=== PATIENT | male | born 1945 | race Caucasian/White ===

== ENCOUNTER 2022-01-26 10:15 | Inpatient (IN) | payer OTHER, MEDICARE ==
[~2022-01-26] VITALS: Ht 180.3 cm; Wt 84.1 kg
[~2022-01-26 10:15] MED LIST: AMANTADINE100 MG PO; ARTIFICIAL TEAR15 ML OU; AUGMENTIN 875-1 EACH PO; AVELOX400 MG PO; BACLOFEN 10MG T10 MG PO; CEFDINIR300 MG PO; CELEXA10 MG PO; CLARITIN10 MG PO; COUMADIN 2MG TAB2 MG PO; COUMADIN2.5 MG PO; COUMADIN4 MG PO; DULERA 100 MCG8.8 GM INH; DUONEB 2.5-0.5M1 AMP NEB; FLORASTOR250 MG PO; LEVAQUIN750 MG PO; LIPITOR40 MG PO; MELATONIN3 MG PO; MILK OF MA400 MG/5 M PO; MUCINEX 600MG600 MG PO; NORVASC5 MG PO; PREDNISONE 10MG10 MG PO; PREDNISONE 20MG20 MG PO; PREDNISONE20 MG PO; PRILOSEC20 MG PO; PROAIR HFA8.5 GM INH; RITALIN5 MG PO; ROBITUSSIN100 MG/5 M PO; SINGULAIR10 MG PO; SYMBICORT 80-10.2 GM INH; TESSALON PERLE100 M1 PO; TYLENOL650 MG PR; VITAMIN D1000 UNI1 PO; ZOFRAN4 MG PO
[2022-01-26 13:40] LABS: BASOPHIL 0.2 % (0-2); EOSINOPHIL 0.7 % (0-7); HCT 42.5 % (42.0-52.0); HGB 13.6 g/dl (13.2-18.0); LYMPHOCYTE 7.9 % (15-48); MCH 26.1 pg (25.0-31.0); MCV 81.6 fL (78.0-100.0); MONOCYTE 7.6 % (0-12); MPV 9.9 fL (6.0-9.5); NEUTROPHIL 83.1 % (41-80); NRBC 0; PLT 297 K/uL (150-400); RBC 5.21 M/uL (4.70-6.00); RDW 16.7 % (11.5-14.0); WBC 12.2 K/uL (4.0-10.5)
[2022-01-26 14:01] LABS: LACTIC ACID 1.1 mmol/L (0.4-1.9)
[2022-01-26 14:11] LABS: PROTHROMBIN TIME 60.4 SECONDS (11.8-13.4)
[2022-01-26 14:14] LABS: INR 7.21 (0.9-1.2)
[2022-01-26 14:53] LABS: BILIRUBIN 2+ mg/dL (NEGATIVE); BLOOD TRACE-INTACT Ery/uL (NEGATIVE); CLARITY CLEAR (CLEAR); GLUCOSE (U) NORMAL (NORMAL); LEUKOCYTES NEGATIVE Leu/uL (NEGATIVE); NITRITE NEGATIVE (NEGATIVE); PROTEIN 2+ mg/dL (NEGATIVE); SPECIFIC GRAVITY >=1.030 (1.001-1.030); UROBILINOGEN >=8.0 mg/dL (0.2-1.0)
[2022-01-26 15:04] LABS: COLOR AMBER (YELLOW)
[2022-01-26 15:15] LABS: AMORPHOUS URATES CRYSTALS TRACE; BACTERIA TRACE; MUCOUS TRACE
[2022-01-26 15:16] LABS: GRANULAR CASTS MODERATE
[2022-01-26 15:17] LABS: ALBUMIN 2.1 g/dL (3.4-5.0); BILIRUBIN - TOTAL 1.7 mg/dL (0.2-1.0); BUN/CREAT RATIO (CALC) 14.9 RATIO; CREATININE 0.94 mg/dL (0.67-1.17); GLOBULIN (CALCULATION) 5.8 g/dL; POTASSIUM 3.7 mmol/L (3.5-5.1); TOTAL PROTEIN 7.9 g/dL (6.4-8.2)
[2022-01-26] MEDS ORDERED: VITAMIN D310 MC1 PO (21:41)
[2022-01-26] MEDS ORDERED: WARFARIN SODIUM4 MG PO (21:43)
[2022-01-26 22:15] LABS: INR 7.6 (0.9-1.2)
[2022-01-27 06:36] LABS: BASOPHIL 0.4 % (0-2); EOSINOPHIL 3.2 % (0-7); HCT 43.3 % (42.0-52.0); HGB 13.2 g/dl (13.2-18.0); LYMPHOCYTE 6.7 % (15-48); MCH 25.9 pg (25.0-31.0); MCHC 30.5 g/dL (32.0-36.0); MCV 84.9 fL (78.0-100.0); MONOCYTE 7.7 % (0-12); MPV 10.7 fL (6.0-9.5); NEUTROPHIL 81.6 % (41-80); PLT 267 K/uL (150-400); RDW 16.7 % (11.5-14.0)
[2022-01-27 06:59] LABS: INR 8.21 (0.9-1.2)
[2022-01-27 07:20] LABS: BUN/CREAT RATIO (CALC) 22.7 RATIO; CREATININE 0.75 mg/dL (0.67-1.17); GLOBULIN (CALCULATION) 5.8 g/dL; POTASSIUM 3.5 mmol/L (3.5-5.1); TOTAL PROTEIN 7.8 g/dL (6.4-8.2)
[2022-01-27 08:16] LABS: BASOPHIL(M) 2 % (0-2); LYMPHOCYTE(M) 4 % (15-48); MONOCYTE(M) 4 % (0-12); NEUTROPHILS(M) 90 % (41-80); NRBC 0; TOTAL CELL COUNT 100
[2022-01-27 08:17] LABS: PLATELET ESTIMATE NORMAL; PLATELET MORPHOLOGY NORMAL
[2022-01-27] MEDS ORDERED: SPIRIVA18 MCG INH (09:07)
[2022-01-27] MEDS ORDERED: WIXELA 250-501 EACH INH (09:07)
[2022-01-27] MEDS ORDERED: VENTOLIN (2.5 MG/3 M NEB (09:08)
--- NOTE | 2022-01-27 12:16 | NUR ---
ST MODIFIED BARIUM, STATED PATIENT DID GREAT EXCEPT SILENT ASPIRATION WHEN USED A STRAW. ORDER FOR REGULAR DIET THIN LIQUIDS, NO STRAWS AND MEDS IN PUREE. DR KIMBROUGH GAVE ORDER OVER TELEPHONE
[2022-01-28 06:56] LABS: BASOPHIL 0.2 % (0-2); EOSINOPHIL 4.8 % (0-7); HCT 35.9 % (42.0-52.0); HGB 11.3 g/dl (13.2-18.0); LYMPHOCYTE 9.7 % (15-48); MCH 25.7 pg (25.0-31.0); MCHC 31.5 g/dL (32.0-36.0); MCV 81.8 fL (78.0-100.0); MONOCYTE 8.5 % (0-12); MPV 10.3 fL (6.0-9.5); NEUTROPHIL 76.2 % (41-80); NRBC 0; PLT 268 K/uL (150-400); RBC 4.39 M/uL (4.70-6.00); RDW 16.4 % (11.5-14.0); WBC 9.9 K/uL (4.0-10.5)
[2022-01-28 07:45] LABS: ALBUMIN 1.8 g/dL (3.4-5.0); BILIRUBIN - TOTAL 0.7 mg/dL (0.2-1.0); BUN/CREAT RATIO (CALC) 13.2 RATIO; CREATININE 0.76 mg/dL (0.67-1.17); MAGNESIUM 1.8 mg/dL (1.8-2.4); POTASSIUM 3.2 mmol/L (3.5-5.1); TOTAL PROTEIN 6.8 g/dL (6.4-8.2)
[2022-01-28 10:05] LABS: INR 2.44 (0.9-1.2); PROTHROMBIN TIME 25.6 SECONDS (11.8-13.4); PTT 56.8 SECONDS (24.4-34.7)
[2022-01-29 06:37] LABS: BASOPHIL 0.2 % (0-2); EOSINOPHIL 6.1 % (0-7); HCT 36.1 % (42.0-52.0); HGB 11.7 g/dl (13.2-18.0); LYMPHOCYTE 10.4 % (15-48); MCH 26.3 pg (25.0-31.0); MCHC 32.4 g/dL (32.0-36.0); MCV 81.1 fL (78.0-100.0); MONOCYTE 10.5 % (0-12); MPV 10.4 fL (6.0-9.5); NEUTROPHIL 72.4 % (41-80); NRBC 0; PLT 255 K/uL (150-400); RBC 4.45 M/uL (4.70-6.00); RDW 16.4 % (11.5-14.0)
[2022-01-29 06:47] LABS: INR 1.63 (0.9-1.2); PROTHROMBIN TIME 18.6 SECONDS (11.8-13.4)
[2022-01-29 07:01] LABS: ALBUMIN 1.8 g/dL (3.4-5.0); BILIRUBIN - TOTAL 0.6 mg/dL (0.2-1.0); BUN/CREAT RATIO (CALC) 6.5 RATIO; CREATININE 0.77 mg/dL (0.67-1.17); POTASSIUM 3.7 mmol/L (3.5-5.1); TOTAL PROTEIN 6.8 g/dL (6.4-8.2)
[2022-01-30 06:48] LABS: BASOPHIL 0.2 % (0-2); EOSINOPHIL 8.5 % (0-7); HCT 36.5 % (42.0-52.0); HGB 11.6 g/dl (13.2-18.0); LYMPHOCYTE 15.7 % (15-48); MCH 26.1 pg (25.0-31.0); MCHC 31.8 g/dL (32.0-36.0); MONOCYTE 11.3 % (0-12); MPV 10.7 fL (6.0-9.5); NEUTROPHIL 63.7 % (41-80); NRBC 0; PLT 269 K/uL (150-400); RBC 4.45 M/uL (4.70-6.00); RDW 16.5 % (11.5-14.0); WBC 8.6 K/uL (4.0-10.5)
[2022-01-30 06:58] LABS: ALBUMIN 1.9 g/dL (3.4-5.0); BILIRUBIN - TOTAL 0.6 mg/dL (0.2-1.0); BUN/CREAT RATIO (CALC) 6.4 RATIO; CREATININE 0.78 mg/dL (0.67-1.17); GLOBULIN (CALCULATION) 4.2 g/dL; POTASSIUM 3.6 mmol/L (3.5-5.1); TOTAL PROTEIN 6.1 g/dL (6.4-8.2)
[2022-01-30] MEDS ORDERED: AMOX TR-K CLV1 EAC4 PO ×2 (13:06→13:07)
[2022-01-30] MEDS ORDERED: MUCINEX 600MG600 MG PO ×2 (13:06→13:07)
[2022-01-30] MEDS ORDERED: WARFARIN SODIUM3 MG PO (13:09)
[2022-01-30 13:48] LABS: INR 1.48 (0.9-1.2); PROTHROMBIN TIME 17.2 SECONDS (11.8-13.4)
--- NOTE | 2022-01-30 15:33 | NUR ---
01/30/22 A referral was made to [facility] per pt / family request.
== END 2022-01-30 15:32 | disposition home or self-care (01) | DRG 444 ==
LOC: FER 10:15 → FMS 17:56
PROVIDERS: Emergency Medicine; Internal Medicine; ADMIT Internal Medicine
DX: K81.0 Acute cholecystitis (principal); J18.9 Pneumonia, unspecified organism; G93.41 Metabolic encephalopathy; E44.1 Mild protein-calorie malnutrition; E87.1 Hypo-osmolality and hyponatremia; J96.11 Chronic respiratory failure with hypoxia; I69.351 Hemiplegia and hemiparesis following cerebral infarction affecting right dominant side; Z20.822 Contact with and (suspected) exposure to COVID-19; J44.9 Chronic obstructive pulmonary disease, unspecified; L89.322 Pressure ulcer of left buttock, stage 2; L89.312 Pressure ulcer of right buttock, stage 2; F03.90 Unspecified dementia, unspecified severity, without behavioral disturbance, psychotic disturbance, mood disturbance, and anxiety; E87.6 Hypokalemia; I10 Essential (primary) hypertension; E78.5 Hyperlipidemia, unspecified; F32.A Depression, unspecified; R79.1 Abnormal coagulation profile; Z99.81 Dependence on supplemental oxygen; Z79.899 Other long term (current) drug therapy; I69.391 Dysphagia following cerebral infarction; R13.10 Dysphagia, unspecified; Z79.01 Long term (current) use of anticoagulants; Z68.25 Body mass index [BMI] 25.0-25.9, adult
CPT/HCPCS: 36415; 70450; 71045; 74230; 80053; 81001; 82553; 83605; 83690; 83735; 84145; 84484; 85025; 85610; 85730; 87040; 92611; 94640; 94762; 97162; 97166; 97530; 97530-GP; C9113; J1650; J2543; J3430; J7030; Q9967; U0002

== ENCOUNTER 2022-02-25 16:29 | Emergency (ER) | payer OTHER, MEDICARE ==
[~2022-02-25 16:29] MED LIST changes: +AMOX TR-K CLV1 EAC4 PO; +SPIRIVA18 MCG INH; +VENTOLIN (2.5 MG/3 M NEB; +VITAMIN D310 MC1 PO; +WARFARIN SODIUM3 MG PO; +WARFARIN SODIUM4 MG PO; +WIXELA 250-501 EACH INH
[2022-02-25 17:15] LABS: BASOPHIL 0.3 % (0-2); EOSINOPHIL 4.2 % (0-7); HCT 43.7 % (42.0-52.0); HGB 13.8 g/dl (13.2-18.0); LYMPHOCYTE 9.5 % (15-48); MCH 25.7 pg (25.0-31.0); MCHC 31.6 g/dL (32.0-36.0); MCV 81.5 fL (78.0-100.0); MONOCYTE 7.4 % (0-12); MPV 10.6 fL (6.0-9.5); NEUTROPHIL 78.3 % (41-80); NRBC 0; PLT 332 K/uL (150-400); RBC 5.36 M/uL (4.70-6.00); WBC 10.3 K/uL (4.0-10.5)
[2022-02-25 17:20] LABS: INR 4.16 (0.9-1.2); PROTHROMBIN TIME 38.6 SECONDS (11.9-13.9); PTT 49.8 SECONDS (24.9-34.6)
[2022-02-25 17:30] LABS: ALBUMIN 2.7 g/dL (3.4-5.0); BILIRUBIN - TOTAL 1.5 mg/dL (0.2-1.0); BUN/CREAT RATIO (CALC) 12.5 RATIO; CREATININE 0.8 mg/dL (0.67-1.17); GLOBULIN (CALCULATION) 6.6 g/dL; POTASSIUM 3.4 mmol/L (3.5-5.1); TOTAL PROTEIN 9.3 g/dL (6.4-8.2)
[2022-02-25 17:39] LABS: LACTIC ACID 0.9 mmol/L (0.4-1.9)
[2022-02-25 20:51] LABS: BILIRUBIN NEGATIVE (NEGATIVE); BLOOD TRACE-INTACT Ery/uL (NEGATIVE); CLARITY CLEAR (CLEAR); COLOR YELLOW (YELLOW); GLUCOSE (U) NORMAL (NORMAL); LEUKOCYTES NEGATIVE Leu/uL (NEGATIVE); NITRITE NEGATIVE (NEGATIVE); PROTEIN NEGATIVE (NEGATIVE)
[2022-02-25 21:01] LABS: BACTERIA TRACE; URINARY WBC RARE
[2022-02-25 21:02] LABS: SQUAMOUS EPITHELIAL CELLS RARE
== END 2022-02-26 00:10 | disposition other institution (70) ==
LOC: FER 16:29
PROVIDERS: Emergency Medicine
DX: K81.1 Chronic cholecystitis (principal); R11.2 Nausea with vomiting, unspecified; R79.89 Other specified abnormal findings of blood chemistry; I10 Essential (primary) hypertension; J44.9 Chronic obstructive pulmonary disease, unspecified; I69.398 Other sequelae of cerebral infarction; Z79.01 Long term (current) use of anticoagulants; Z79.899 Other long term (current) drug therapy; Z20.822 Contact with and (suspected) exposure to COVID-19
CPT/HCPCS: 36415; 36430; 80053; 81001; 83605; 84145; 85025; 85610; 85730; 86900; 86901; 87040; J0780; J2405; J2543; J3430; J7050; P9017; U0002

== ENCOUNTER 2022-04-16 15:09 | Inpatient (IN) | payer MEDICARE ==
[~2022-04-16] VITALS: Ht 167.6 cm; Wt 68.7 kg
[2022-04-16 15:47] LABS: BASOPHIL 0.3 % (0-2); EOSINOPHIL 4.2 % (0-7); HCT 36.3 % (42.0-52.0); HGB 11.7 g/dl (13.2-18.0); LYMPHOCYTE 6.2 % (15-48); MCH 26.1 pg (25.0-31.0); MCHC 32.2 g/dL (32.0-36.0); MONOCYTE 11.5 % (0-12); MPV 9.7 fL (6.0-9.5); NEUTROPHIL 77.4 % (41-80); NRBC 0; PLT 283 K/uL (150-400); RBC 4.48 M/uL (4.70-6.00); RDW 16.2 % (11.5-14.0); WBC 7.6 K/uL (4.0-10.5)
[2022-04-16 16:08] LABS: BILIRUBIN NEGATIVE (NEGATIVE); BLOOD NEGATIVE Ery/uL (NEGATIVE); CLARITY CLEAR (CLEAR); COLOR YELLOW (YELLOW); GLUCOSE (U) NORMAL (NORMAL); LEUKOCYTES NEGATIVE Leu/uL (NEGATIVE); NITRITE NEGATIVE (NEGATIVE); PROTEIN NEGATIVE (NEGATIVE); SPECIFIC GRAVITY 1.015 (1.001-1.030); UROBILINOGEN 0.2 mg/dL (0.2-1.0)
[2022-04-16 16:13] LABS: ALBUMIN 2.6 g/dL (3.4-5.0); BILIRUBIN - TOTAL 0.2 mg/dL (0.2-1.0); BUN/CREAT RATIO (CALC) 9.6 RATIO; CREATININE 0.73 mg/dL (0.67-1.17); GLOBULIN (CALCULATION) 4.9 g/dL; POTASSIUM 4.3 mmol/L (3.5-5.1); TOTAL PROTEIN 7.5 g/dL (6.4-8.2)
[2022-04-16 16:15] LABS: LACTIC ACID 1.1 mmol/L (0.4-1.9)
[2022-04-16 16:45] LABS: INFLUENZA A NAA NEGATIVE (NEGATIVE)
[2022-04-16 16:54] LABS: CORONAVIRUS 2019 SARS-COV-2 POSITIVE (NEGATIVE)
[2022-04-16] MEDS ORDERED: JANTOVEN3 MG PO (20:38)
[2022-04-16] MEDS ORDERED: JANTOVEN6 MG PO (20:40)
[2022-04-16 21:26] LABS: INR 1.48 (0.9-1.2); PROTHROMBIN TIME 17.4 SECONDS (11.9-13.9)
[2022-04-17 07:28] LABS: BASOPHIL 0.3 % (0-2); EOSINOPHIL 0.3 % (0-7); HCT 38.7 % (42.0-52.0); HGB 12.3 g/dl (13.2-18.0); LYMPHOCYTE 12.1 % (15-48); MCH 25.9 pg (25.0-31.0); MCHC 31.8 g/dL (32.0-36.0); MCV 81.6 fL (78.0-100.0); MONOCYTE 14.1 % (0-12); MPV 9.7 fL (6.0-9.5); NEUTROPHIL 72.9 % (41-80); NRBC 0; PLT 283 K/uL (150-400); RBC 4.74 M/uL (4.70-6.00); RDW 16.2 % (11.5-14.0); WBC 5.9 K/uL (4.0-10.5)
[2022-04-17 07:49] LABS: IRON % SATURATION 10.4 %SAT (20-50)
[2022-04-17 08:03] LABS: BUN/CREAT RATIO (CALC) 9.6 RATIO; CREATININE 0.83 mg/dL (0.67-1.17)
--- NOTE | 2022-04-17 16:45 | NUR ---
04/17/22 Mr. Hand lives at home with his spouse. He is followed by [facility]. [facility] has been notified of admission. Luanne Shepard is the PCP. He also receives care at [facility]. Mr. Hand has a rw, 02 at 2.5 L, portable tank, and hospital bed. Ms. Hand plans on Mr. Hand returning home at discharge.
[2022-04-18 07:35] LABS: BASOPHIL 0 % (0-2); EOSINOPHIL 0 % (0-7); HCT 40.5 % (42.0-52.0); HGB 12.9 g/dl (13.2-18.0); LYMPHOCYTE 19.1 % (15-48); MCH 25.6 pg (25.0-31.0); MCHC 31.9 g/dL (32.0-36.0); MCV 80.5 fL (78.0-100.0); MONOCYTE 10.8 % (0-12); MPV 10.3 fL (6.0-9.5); NEUTROPHIL 69.6 % (41-80); NRBC 0; PLT 316 K/uL (150-400); RBC 5.03 M/uL (4.70-6.00); RDW 16.3 % (11.5-14.0); WBC 4.2 K/uL (4.0-10.5)
[2022-04-18 07:46] LABS: INR 1.24 (0.9-1.2); PROTHROMBIN TIME 15.2 SECONDS (11.9-13.9)
[2022-04-18 07:56] LABS: BUN/CREAT RATIO (CALC) 21.7 RATIO; CREATININE 0.69 mg/dL (0.67-1.17); POTASSIUM 4.4 mmol/L (3.5-5.1)
[2022-04-19 07:32] LABS: BASOPHIL 0.1 % (0-2); EOSINOPHIL 0 % (0-7); HCT 40.7 % (42.0-52.0); HGB 13.1 g/dl (13.2-18.0); LYMPHOCYTE 16.7 % (15-48); MCH 25.7 pg (25.0-31.0); MCHC 32.2 g/dL (32.0-36.0); MONOCYTE 10.1 % (0-12); NEUTROPHIL 72.5 % (41-80); NRBC 0; PLT 340 K/uL (150-400); RBC 5.09 M/uL (4.70-6.00); RDW 15.9 % (11.5-14.0); WBC 7.1 K/uL (4.0-10.5)
[2022-04-19 07:46] LABS: INR 1.5 (0.9-1.2); PROTHROMBIN TIME 17.6 SECONDS (11.9-13.9)
[2022-04-19 07:52] LABS: BUN/CREAT RATIO (CALC) 30.1 RATIO; CREATININE 0.73 mg/dL (0.67-1.17); POTASSIUM 4.4 mmol/L (3.5-5.1)
[2022-04-20 07:14] LABS: BASOPHIL 0 % (0-2); EOSINOPHIL 0 % (0-7); HCT 39.9 % (42.0-52.0); HGB 12.7 g/dl (13.2-18.0); MCH 25.6 pg (25.0-31.0); MCHC 31.8 g/dL (32.0-36.0); MCV 80.4 fL (78.0-100.0); MONOCYTE 10.4 % (0-12); MPV 10.1 fL (6.0-9.5); NRBC 0; PLT 356 K/uL (150-400); RBC 4.96 M/uL (4.70-6.00); RDW 16.2 % (11.5-14.0)
[2022-04-20 07:37] LABS: BUN/CREAT RATIO (CALC) 24.7 RATIO; CREATININE 0.73 mg/dL (0.67-1.17); POTASSIUM 3.9 mmol/L (3.5-5.1)
[2022-04-20 08:25] LABS: INR 1.75 (0.9-1.2); PROTHROMBIN TIME 19.8 SECONDS (11.9-13.9)
--- NOTE | 2022-04-20 16:52 | NUR ---
04/20/22 Ms. Hand is also hopitalized. Jessica Coelho, daughter, states that she plans to take her father home. Ms. Coelho plans to stay with her father around the clock until her mother returns home.
[2022-04-21 07:14] LABS: HCT 38.1 % (42.0-52.0); HGB 12.3 g/dl (13.2-18.0); MCH 25.9 pg (25.0-31.0); MCHC 32.3 g/dL (32.0-36.0); MCV 80.2 fL (78.0-100.0); MPV 10.7 fL (6.0-9.5); RBC 4.75 M/uL (4.70-6.00); WBC 5.9 K/uL (4.0-10.5)
[2022-04-21 07:23] LABS: INR 2.01 (0.9-1.2); PROTHROMBIN TIME 22.1 SECONDS (11.9-13.9)
[2022-04-21 08:44] LABS: CREATININE 0.65 mg/dL (0.67-1.17); POTASSIUM 4.1 mmol/L (3.5-5.1)
[2022-04-21 08:45] LABS: ALBUMIN 3.4 g/dL (3.4-5.0); BILIRUBIN - TOTAL 0.6 mg/dL (0.2-1.0); GLOBULIN (CALCULATION) 2.7 g/dL; TOTAL PROTEIN 6.1 g/dL (6.4-8.2)
[2022-04-21 08:56] LABS: MAGNESIUM 1.9 mg/dL (1.8-2.4)
--- NOTE | 2022-04-21 10:56 | NUR ---
04/21/22 [facility] was informed of today's discharge.
== END 2022-04-21 16:47 | disposition home health service (06) | DRG 177 ==
LOC: FER 15:09 → FMS 18:56
PROVIDERS: Internal Medicine; Nurse Practitioner; Nurse Practitioner Acute Care; ADMIT Emergency Medicine
PROC: XW033E5 Introduction of Remdesivir Anti-infective into Peripheral Vein, Percutaneous Approach, New Technology Group 5 (ICD-10-PCS; principal; 2022-04-16)
PROC: 8E0ZXY6 Isolation (ICD-10-PCS; 2022-04-16)
PROC: 3E0DX3Z Introduction of Anti-inflammatory into Mouth and Pharynx, External Approach (ICD-10-PCS; 2022-04-17)
DX: U07.1 COVID-19 (principal); G93.41 Metabolic encephalopathy; J12.82 Pneumonia due to coronavirus disease 2019; J96.21 Acute and chronic respiratory failure with hypoxia; J15.9 Unspecified bacterial pneumonia; I69.351 Hemiplegia and hemiparesis following cerebral infarction affecting right dominant side; J44.0 Chronic obstructive pulmonary disease with (acute) lower respiratory infection; E87.1 Hypo-osmolality and hyponatremia; K80.00 Calculus of gallbladder with acute cholecystitis without obstruction; F03.90 Unspecified dementia, unspecified severity, without behavioral disturbance, psychotic disturbance, mood disturbance, and anxiety; I10 Essential (primary) hypertension; D50.9 Iron deficiency anemia, unspecified; Y95 Nosocomial condition; K59.00 Constipation, unspecified; L89.322 Pressure ulcer of left buttock, stage 2; L89.312 Pressure ulcer of right buttock, stage 2; K21.9 Gastro-esophageal reflux disease without esophagitis; E78.5 Hyperlipidemia, unspecified; Z80.9 Family history of malignant neoplasm, unspecified; Z82.3 Family history of stroke; Z87.891 Personal history of nicotine dependence; Z79.899 Other long term (current) drug therapy; Z79.01 Long term (current) use of anticoagulants
CPT/HCPCS: 36415; 36600; 71045; 80048; 80053; 80202; 81003; 82150; 82728; 82803; 83540; 83550; 83605; 83615; 83735; 84145; 84484; 85025; 85610; 87040; 87088; 93005; 94010; 94640; 94667; 94668; 94760; 94762; 97162; 97166; 97530; 97530-GP; C9399; J0692; J1650; J3370; J7030; J7050; J8540; U0002